=== PATIENT | male | born 1970 | race Caucasian/White ===

== ENCOUNTER 2023-02-12 19:44 | Observation (INO) | payer MEDICAID, SELFPAY ==
[2023-02-12] VITALS (9 sets, daily range): BP systolic 173–207; BP diastolic 87–116; PULSE 82–107; RESP 12–18; TEMP 36.9–37.6; O2SAT 88–97; BMI 39.0; BMI 38.5
--- NOTE | 2023-02-12 19:52 | EKG12_ITS ---
Test Reason : AMS Blood Pressure : / mmHG Vent. Rate : 100 BPM Atrial Rate : 100 BPM P-R Int : 148 ms QRS Dur : 086 ms QT Int : 338 ms P-R-T Axes : 050 030 -09 degrees QTc Int : 436 ms Normal sinus rhythm Possible Left atrial enlargement ST & T wave abnormality, consider lateral ischemia Abnormal ECG Confirmed by YARED RAMIREZ, CARLEEN ([id number]), supervising film or videotape editor DRU ROACH ([id number]) on 02/13/2023 10:45:14 AM Referred By: Confirmed By:CARLEEN VAIL MD
--- NOTE | 2023-02-12 19:52 | CT_ITS ---
INDICATION: GCS 3 EXAMINATION: CT BRAIN - CT Head or Brain W/O Contrast Injection TECHNIQUE: Multiple axial images were obtained of the head without intravenous contrast. A radiation dose optimization technique was used for this scan. IV Contrast dosage and agent: None. RADIATION DOSAGE (If Supplied By Facility): CTDIvol = ( 44.99 ) mGy, DLP = ( 863.60 ) mGycm COMPARISON: None FINDINGS: BRAIN PARENCHYMA: No intra- or extra-axial hemorrhage. No evidence of acute infarct. No intracranial mass or mass effect. There is preservation of the bee/white matter interface. Posterior fossa structures are unremarkable. CSF SPACES: Appropriate for age. No hydrocephalus. Basal cisterns are patent. CALVARIUM, SKULL BASE, PARANASAL SINUSES AND MASTOID AIR CELLS: Clear. No discrete lytic or blastic abnormalities. ORBITS: Both globes, extraocular muscles, optic nerves and retrobulbar fat appear unremarkable. ASPECTS Score for Acute Strokes: 10 CT/Brain/Head without Contrast IMPRESSION: Negative Brain CT without contrast. Electronically Signed: Jose Hummel MD at 20:44 EDT ,
--- NOTE | 2023-02-12 20:05 | EX.ED.CRITCA ---
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 They entered the house. They found him unresponsive. There are is no documentation of medication on prior records. He was seen once for cellulitis and abscess by Dr. Elio Dasilva. There are no other records available for review. Prior similar symptoms: No Recent Illness/Hospitalization: No PFSH PFSH Medical History (Updated 02/12/23 @ 21:[address] Vin Ivy MD) Marijuana abuse Medical History unable to obtain unable to obtain Home Medications clindamycin HCl 300 mg capsule (Cleocin HCl) 300 mg PO Q6H ##40 01/31/14 [Rx Last Taken Unknown] Allergy/AdvReac Type Severity Reaction Status Date / Time No Known Allergies Allergy Verified 01/30/14 23:48 Family History unable to obtain unable to obtain Surgical History unable to obtain unable to obtain Social History (Updated 02/12/23 @ 20:[address] Vin Ivy MD) household members: none Smoking Status: Unknown if ever smoked ROS ROS ED Review of Systems ROS Unobtainable: due to mental status EXAM Physical Exam Const Vital Signs: 02/12/23 19:48 02/12/23 19:52 02/12/23 20:08 Temperature 99.6 F H 98.9 F Temperature Source Temporal Core Pulse Rate 107 H 107 H Respiratory Rate 18 15 Blood Pressure 173/108 H 207/110 H 203/116 H Blood Pressure Mean 129 142 145 Pulse Ox 95 93 Oxygen Delivery Method Room Air Room Air Oxygen Flow Rate (L/min) 02/12/23 20:31 02/12/23 20:40 02/12/23 20:41 Temperature 99.6 F H 99.6 F H Temperature Source Core Core Pulse Rate 98 84 Respiratory Rate 14 12 Blood Pressure 188/96 H 181/87 H Blood Pressure Mean 126 118 Pulse Ox 92 88 97 Oxygen Delivery Method Room Air Room Air Nasal Cannula Oxygen Flow Rate (L/min) 2 02/12/ 21:28 Temperature 99.1 F Temperature Source Core Pulse Rate 82 Respiratory Rate 18 Blood Pressure 173/94 H Blood Pressure Mean 120 Pulse Ox 96 Oxygen Delivery Method Nasal Cannula Oxygen Flow Rate (L/min) 2 Positive well nourished, well developed, obese and unkempt Constitutional Narrative: Patient staring. Pupils are pinpoint. Patient does not respond to noxious stimuli. Pressure applied to the right and left supraorbital nerves with no response. Apparently patient flushed when Zheng was placed by nursing staff. There was no verbal response and no appropriate response in his extremities. He did move his extremities according to nurses. General Appearance ED: unkempt, well developed and pallor Nutritional Appearance: obese HEENT HEENT Narrative: Ears normal. No hemotympanum. No CSF otorrhea or rhinorrhea. normocephalic and atraumatic; Negative for cyanosis of lips/distal nose or tenderness Eyes Eyes Narrative: Patient is looking straight ahead. Nurse stated he does not have a corneal reflex. This is probably due to the fact that he has contacts in. He does respond to touching of his lashes. General Eye ED: Negative for pale conjunctiva or scleral icterus Neck Neck Narrative: Neck is supple. Trachea is midline. There is no inspiratory stridor. There is no the. Resp Resp Narrative: There is no respiratory distress. Patient has adventitial breath sounds noted. There is no rales, rhonchi or wheezing noted. Cardio regular rhythm, S1 normal heart sound, S2 normal heart sound and no murmurs Rate: tachycardic GI non-tender, non-distended and no masses Auscultation: hypoactive bowel sounds Palpation: soft Narrative: Penis without lesion or discharge. No sign swelling or lesions noted. Back/Spine Back/Spine Narrative: No evidence of trauma. Neuro No oriented x3 Neuro Narrative: GCS is 9. Sensorium / Orientation: Negative for alert Gait (Neuro): Negative for normal gait Psych Psych Narrative: Unable to determine Appearance: unkempt Skin Skin Narrative: Patient is pale diaphoretic and there is evidence of acrocyanosis. General Skin Exam: pallor; Negative for jaundice MDM MDM MDM Narrative Medical decision making narrative: With elevated blood pressure pinpoint pupils need to rule out intracranial bleed. The fact that he was found with THC Gummies need to rule out by exclusion adverse reaction to drug overdose. We will obtain CAT scan of the head rule out intracranial bleed. Because of the abnormal breath sounds obtain chest x-ray to rule out pneumonia. Zheng was placed obtain urine for tox screen as well as UA. Competence of metabolic panel was obtained to assess for evidence of metabolic causes of his altered mental status. Since patient is not drooling is not hypoxic does not have labored breathing will observe. There is no indication at this point for intubation to protect his airway. Lab Data Attestation: I reviewed the patient's lab results. Lab results narrative: CV see is. Coags are normal. Comprehensive metabolic panel is marked for an elevated creatinine of 1.61 with a GFR of 48. Glucose is elevated 121 with a normal CO2 anion gap. Lactate normal. Urinalysis is unremarkable. Tox screen is positive for cannabis only. Is Labs: Laboratory Results - last 24 hr 02/12/23 02/12/23 20:00 20:05 WBC 8.5 RBC 5.64 Hgb 16.4 Hct 48.4 MCV 85.8 MCH 29.1 MCHC 33.9 RDW Std Deviation 40.8 RDW Coeff of Melania 13.2 Plt Count 265 MPV 11.0 Immature Gran % (Auto) 0.700 Neut % (Auto) 67.9 Lymph % (Auto) 18.8 L [place] % (Auto) 11.3 H Eos % (Auto) 0.7 Baso % (Auto) 0.6 Absolute Neuts (auto) 5.8 Absolute Lymphs (auto) 1.59 Nucleated RBC % 0 PT 13.8 INR 1.1 APTT 33.0 Sodium 138 Potassium 3.6 Chloride 106 Carbon Dioxide 25.0 Anion Gap 7 BUN 16 Creatinine 1.61 H Estim Creat Clear Calc 56.05 Est GFR (MDRD) Af Amer 58 L Est GFR (MDRD) Non-Af 48 L BUN/Creatinine Ratio 9.9 L Glucose 121 H Lactic Acid 1.4 Calcium 9.1 Total Bilirubin 0.70 Direct Bilirubin 0.18 AST 17 ALT 44 Alkaline Phosphatase 93 Total Protein 7.8 Albumin 4.0 Globulin 3.8 Urine Color Yellow Urine Clarity Clear Urine pH 5.0 Ur Specific [place] 1.025 Urine Protein 30 H Urine Glucose (UA) Normal Urine Ketones 5 H Urine Occult Blood 10 H Urine Nitrite Negative Urine Bilirubin 1 H Urine Urobilinogen 1 H Ur Leukocyte Esterase 25 H Urine RBC 0 SEEN Urine WBC 0-5 SEEN Ur Squamous Epith Cells 0 SEEN Urine Bacteria 0 SEEN Hyaline Casts 0-5 SEEN Urine Mucus 0 SEEN Urine Opiates Screen NEGATIVE Urine Methadone Screen NEGATIVE Ur Barbiturates Screen NEGATIVE Ur Phencyclidine Scrn NEGATIVE Ur Amphetamines Screen NEGATIVE MDMA (Ecstasy) Screen NEGATIVE U Benzodiazepines Scrn NEGATIVE Urine Cocaine Screen NEGATIVE U Cannabinoids Screen POSITIVE H Ur Drug Screen Comment Ethyl Alcohol 4.0 POC Glucose 128 H ABG Data ABG results: ABG 02/12/23 21:30 Specimen Type ART Sample Site R Radial pH 7.38 Bicarbonate Actual 25.7 Total CO2 27 Base Excess 1 O2 Saturation 97 ABG pCO2 44.0 ABG pO2 91 Baljit Test N/A O2 Delivery Device Cannula Liter Flow 2.0 Radiography Diagnostic Testing: Clinical Impression(s) from Imaging Studies Brain CT 02/12/23 19:52 IMPRESSION: Negative Brain CT without contrast. Electronically Signed: Jose Hummel MD at 20:44 EDT Reading Location ID and State: [address] [place] [address] Tel , Service support , Chest X-Ray 02/12/23 20:20 IMPRESSION: No radiographic evidence of acute cardiopulmonary disease. Electronically Signed: Jose Hummel MD at 20:44 EDT , EKG Initial EKG: Attestation: I personally reviewed and interpreted this EKG as follows: Interpretation: Sinus Rhythm (Rate is 100. MN interval is under 48 ms. Cures duration 86 ms. QT durations 138 ms. [place] is normal. There is ST-T wave changes consistent with LVH.) Critical Care Time Critical Care Time: Yes Critical care time (excluding procedures): 30-74 minutes (21), Including time spent: (History, physical, documentation, discussion with law enforcement) and Discussing w/Consultants Discharge Plan Dx/Rx/DC Orders Clinical Impression: Unresponsive state, Sinus tachycardia, Acute renal insufficiency, Cannabis overdose, Hypertension Disposition Disposition: Acute Care Hospital [facility]
[2023-02-12 20:08] LABS: Bacteria 0 SEEN /hpf (None Seen); Mucous, Urine 0 SEEN /hpf (<or=2+); Red Blood Cells-Urine 0 SEEN /hpf (0-5); Squamous Epithelial Cells - UA 0 SEEN /hpf (0-5)
[2023-02-12 20:11] LABS: Color, Urine Yellow (Yellow); Glucose, Dipstick Normal (Normal); Ketone-Dipstick 5 mg/dl (Negative); Leukocyte Esterase-Dipstick 25 /ul (Negative); Nitrite-Dipstick Negative (Negative); Occult Blood-Urine 10 /ul (Negative); Protein-Dipstick 30 mg/dl (Negative); Specific Gravity, Urine 1.025 (1.002-1.030); Urine Bilirubin Dipstick 1 mg/dL (Negative); Urine Clarity Clear (Clear); Urine Urobilinogen 1 mg/dl (Normal)
[2023-02-12 20:19] LABS: Absolute Lymphocyte Count 1.59 X10^3/uL (0.83-4.51); Absolute Neutrophil Count 5.8 X10^3/uL (2.0-7.7); Basophil# 0.05 X10^3/uL; Basophil% 0.6 % (0-1); Eosinophil# 0.06 X10^3/uL; Eosinophils% 0.7 % (0-5); Hematocrit 48.4 % (40-54); Hemoglobin 16.4 g/dL (13.0-16.5); Lymphocyte # 1.59 X10^3/ul (0.83-4.51); Lymphocyte % 18.8 % (19-41); Mean Corp Hgb Conc 33.9 g/dL (32-36); Mean Corpuscular Hgb 29.1 pg (27.0-32.0); Mean Corpuscular Volume 85.8 fL (80-94); Monocyte# 0.96 X10^3/uL; Monocyte% 11.3 % (0-10); NRBC Flagged by Analyzer 0 % (0-5); Neutrophil # 5.75 X10^3/uL (2.7-7.7); Neutrophil % 67.9 % (47-70); Platelet Count 265 K/mm3 (150-450); RBC Distribution Width CV 13.2 % (11.6-14.6); RBC Distribution Width SD 40.8 fl (35.1-43.9); Red Blood Count 5.64 M/mm3 (4.6-6.2); White Blood Count 8.5 K/mm3 (4.4-11.0)
[2023-02-12 20:20] LABS: Hyaline Cast 0-5 SEEN /lpf (0-5); White Blood Cells 0-5 SEEN /hpf (0-5)
--- NOTE | 2023-02-12 20:20 | RAD_ITS ---
INDICATION: Adventitial breath sounds EXAMINATION/TECHNIQUE: X-RAY - XR Chest 1 View COMPARISON: None FINDINGS: LUNGS: No consolidation, edema or effusion. No pneumothorax. MEDIASTINUM AND CARDIOVASCULAR STRUCTURES: Cardiac silhouette not enlarged. Central airways and mediastinal contour are unremarkable. RAD/Chest 1 View (Portable) IMPRESSION: No radiographic evidence of acute cardiopulmonary disease. Electronically Signed: Jose Hummel MD at 20:44 EDT ,
[2023-02-12 20:28] LABS: International Normalized Ratio 1.1; Prothrombin Time (Protime)PT. 13.8 SECONDS (11.7-14.9)
[2023-02-12 20:29] LABS: Bedside Glucose 128 mg/dL (74-106)
[2023-02-12 20:31] LABS: Amphetamine Urine VISTA NEGATIVE (<1000 ng/mL); Barbiturate Urine VISTA NEGATIVE (< 200 ng/mL); Benzodiazepine Urine VISTA NEGATIVE (< 200 ng/mL); Cocaine Urine VISTA NEGATIVE (< 300 ng/mL); Ecstacy Urine VISTA NEGATIVE (< 500 ng/mL); Methadone Urine VISTA NEGATIVE (< 300 ng/mL); PCP Urine VISTA NEGATIVE (< 25 ng/mL); THC Urine VISTA POSITIVE (< 50 ng/mL); Vista UDS pH Range 5
[2023-02-12] MEDS: Labetalol (Prefilled) 20 MG/4 ML IV (20:37)
[2023-02-12 20:42] LABS: AST(SGOT) 17 U/L (15-37); Alanine Aminotransfer ALT/SGPT 44 U/L (16-61); Alkaline Phosphatase 93 U/L (45-117); Anion Gap 7 (5-15); BUN 16 mg/dL (7-18); BUN/Creat Ratio 9.9 RATIO (10-20); Bilirubin, Direct 0.18 mg/dL (0.00-0.30); Calcium,Total 9.1 mg/dL (8.5-10.1); Chloride 106 mmol/L (98-107); Creatinine, Serum 1.61 mg/dL (0.70-1.30); EST Glomerular Filtration Rate 48 mL/min (>60); Est Glom Filt Rate - Afr Amer 58 mL/min (>60); Estimated Creatinine Clearance 56.05 ml/min; Globulin 3.8 g/dL (2.2-4.2); Glucose 121 mg/dL (74-106); Potassium 3.6 mmol/L (3.5-5.1); Protein, Total 7.8 g/dL (6.4-8.2); Sodium Level 138 mmol/L (136-145)
[2023-02-12 20:46] LABS: Lactic Acid 1.4 mmol/L (0.4-1.9)
[2023-02-12] MEDS: 0.9% Normal Saline 1,000 ML 999 ML IV (21:00)
[2023-02-12 21:33] LABS: Base Excess 1 mmol/L (-2 to +2); Bicarbonate 25.7 mmol/L (22-26); Blood Gas Specimen Type ART; O2 Delivery Device Cannula; PO2 91 mmHG (75-100); SITE R Radial; SO2 97 % (95-99); Total Carbon Dioxide 27 mmol/L; pH 7.38 (7.35-7.45)
--- NOTE | 2023-02-12 22:05 | ED.RN ---
pt denied wanting RN to call anyone
--- NOTE | 2023-02-12 22:09 | PCM.HP.STD ---
HPI - General General Date of Admission: 02/12/23 Date of Service: 02/12/23 Chief Complaint: Unresponsive. HPI Narrative The patient is a 52 y/o M w/ PMHx: Obesity, Heavy Chronic cannabis usage who presents to the [facility] ED on 02/12/23 with history of chronic cannabis gummy usage on a daily basis however he recently did get a new batch of Gummies and took his normal amount unfortunately prompting significant encephalopathy with last known well unclear timeline fortunately checked on by his neighbor who had not seen him recently prompting police/EMS call secondary to finding him unresponsive in his home. In the ED once he became more alert and was able to interact he did report that these were definitely different and significantly more strong and he had not realized it. He did state that he has not ate or drank and given the confusion but could not tell me last time of intake or last known well time. He denies any specific complaints or pain at this time. Work-up in the ED included T99.6 With most recent repeat T99.1 Initially temporal and most recent core, heart rate initially 107 with most recent repeat 82, BP initially 173/108 with most recent repeat 173/94, respiratory rate 18, initially 95% on room air but desaturated to 88% on room air with improvement to 96% on 2 L nasal cannula, CBC with WC 8.5, hemoglobin 16.4, platelet 265 without marked shift, unremarkable coags, ABG not marked appearing obtained on 2 L nasal cannula, CMP with BUN/creatinine 16/1.61, glucose 121, lactic acid 1.4, hepatic profile unremarkable, urinalysis with elevated specific gravity 1.025, protein 30, ketone 5, occult blood 10, negative nitrite, leukocyte Estrace 25 with no urine RBCs or WBCs and no urine bacteria, urine tox screen with cannabis noted, ethyl alcohol level pending upon requested evaluation of patient, chest x-ray with no acute cardiopulmonary findings, CT of the brain with no acute intracranial findings, EKG with sinus tachycardia with nonspecific changes. In the ED patient administered 1L normal saline as well as labetalol 20 mg IV x1. [facility] Medical History (Updated 02/12/23 @ 22:[address] Ching White MD) Hypotestosteronemia in male Marijuana abuse Obesity Medical History unable to obtain Home Medications clindamycin HCl 300 mg capsule (Cleocin HCl) 300 mg PO Q6H ##40 01/31/14 [Rx Last Taken Unknown] Allergy/AdvReac Type Severity Reaction Status Date / Time No Known Allergies Allergy Verified 01/30/14 23:48 Family History (Updated 02/12/23 @ 22:[address] Ching White MD) Mother Hypertension CAD (coronary artery disease) Heart disease Myocardial infarction Father No problems noted. Family History unable to obtain Surgical History (Updated 02/12/23 @ 22:[address] Ching White MD) History of vasectomy S/P foot surgery, right Surgical History unable to obtain Social History (Updated 02/12/23 @ 22:[address] Ching White MD) household members: none Smoking Status: Never smoker alcohol intake: never substance use type: marijuana ROS Review of Systems ROS Unobtainable: due to encephalopathy Vital Signs Vital Signs Vital Signs: 02/12/23 19:48 02/12/23 19:52 02/12/23 20:08 Temperature 99.6 F H 98.9 F Temperature Source Temporal Core Pulse Rate 107 H 107 H Respiratory Rate 18 15 Blood Pressure 173/108 H 207/110 H 203/116 H Blood Pressure Mean 129 142 145 Pulse Ox 95 93 Oxygen Delivery Method Room Air Room Air Oxygen Flow Rate (L/min) 02/12/23 20:31 02/12/23 20:40 02/12/23 20:41 Temperature 99.6 F H 99.6 F H Temperature Source Core Core Pulse Rate 98 84 Respiratory Rate 14 12 Blood Pressure 188/96 H 181/87 H Blood Pressure Mean 126 118 Pulse Ox 92 88 97 Oxygen Delivery Method Room Air Room Air Nasal Cannula Oxygen Flow Rate (L/min) 2 02/12/23 21:28 02/12/23 21:55 Temperature 99.1 F 99 F Temperature Source Core Core Pulse Rate 82 82 Respiratory Rate 18 18 Blood Pressure 173/94 H 182/96 H Blood Pressure Mean 120 124 Pulse Ox 96 96 Oxygen Delivery Method Nasal Cannula Nasal Cannula Oxygen Flow Rate (L/min) 2 2 Weight Weight: 272 lb 4.334 oz Body Mass Index (BMI) 39.0 Physical Exam Narrative Physical Examination: General: Awake, initially not alert, not answering any questions however improved through his time in the ED and following IV fluids, now able to give historical information and appearing more appropriate, following some commands but very slow and lethargic, laying in the ED bed, extremely flat affect. Skin: Still mildly flushed color, normal turgor, no icterus, no cyanosis. HEENT: AT/NC, EOMI, PERRLA, dry MM, no carotid bruits or JVD noted. Lungs: CTA bilaterally, moderate effort, mild decrease BL bases, no rales, ronchi or wheezing. Heart: Improved, regular rate and rhythm; no gallop, rub audible. Abdomen: Soft, obese, NTTP, ND, hyperactive BS, no HSM. Extremities: No cyanosis, clubbing, or edema. Neurological: Awake, initially not alert, not answering any questions however improved through his time in the ED and following IV fluids, now able to give historical information and appearing more appropriate, following some commands but very slow and lethargic, laying in the ED bed, extremely flat affect, cognitive function significantly improved from initial ED arrival however still not baseline intact; pupils equally reactive to light and accommodation, cranial nerves grossly normal, moving all 4 extremities, no focal deficits, strength remains moderately to severely globally decreased but this is more so secondary to his lethargy and extremely slow responsiveness. Psychiatric: Affect appears extremely flat, no acute evidence of depressive or anxiety feelings. Results Lab / Micro Data 02/12/23 20:00 02/12/23 20:00 Labs: Laboratory Results - last 24 hr 02/12/23 20:00: WBC 8.5, RBC 5.64, Hgb 16.4, Hct 48.4, MCV 85.8, MCH 29.1, MCHC 33.9, RDW Std Deviation 40.8, RDW Coeff of Melania 13.2, Plt Count 265, MPV 11.0, Immature Gran % (Auto) 0.700, Neut % (Auto) 67.9, Lymph % (Auto) 18.8 L, [place] % (Auto) 11.3 H, Eos % (Auto) 0.7, Baso % (Auto) 0.6, Absolute Neuts (auto) 5.8, Absolute Lymphs (auto) 1.59, Nucleated RBC % 0, PT 13.8, INR 1.1, APTT 33.0, Sodium 138, Potassium 3.6, Chloride 106, Carbon Dioxide 25.0, Anion Gap 7, BUN 16, Creatinine 1.61 H, Estim Creat Clear Calc 56.05, Est GFR (MDRD) Af Amer 58 L, Est GFR (MDRD) Non-Af 48 L, BUN/Creatinine Ratio 9.9 L, Glucose 121 H, Lactic Acid 1.4, Calcium 9.1, Total Bilirubin 0.70, Direct Bilirubin 0.18, AST 17, ALT 44, Alkaline Phosphatase 93, Total Protein 7.8, Albumin 4.0, Globulin 3.8, Urine Color Yellow, Urine Clarity Clear, Urine pH 5.0, Ur Specific [place] 1.025, Urine Protein 30 H, Urine Glucose (UA) Normal, Urine Ketones 5 H, Urine Occult Blood 10 H, Urine Nitrite Negative, Urine Bilirubin 1 H, Urine Urobilinogen 1 H, Ur Leukocyte Esterase 25 H, Urine RBC 0 SEEN, Urine WBC 0-5 SEEN, Ur Squamous Epith Cells 0 SEEN, Urine Bacteria 0 SEEN, Hyaline Casts 0-5 SEEN, Urine Mucus 0 SEEN, Urine Opiates Screen NEGATIVE, Urine Methadone Screen NEGATIVE, Ur Barbiturates Screen NEGATIVE, Ur Phencyclidine Scrn NEGATIVE, Ur Amphetamines Screen NEGATIVE, MDMA (Ecstasy) Screen NEGATIVE, U Benzodiazepines Scrn NEGATIVE, Urine Cocaine Screen NEGATIVE, U Cannabinoids Screen POSITIVE H, Ur Drug Screen Comment , Ethyl Alcohol 4.0 02/12/23 20:05: POC Glucose 128 H ABG Data ABG results: ABG 02/12/23 21:30 Specimen Type ART Sample Site R Radial pH 7.38 Bicarbonate Actual 25.7 Total CO2 27 Base Excess 1 O2 Saturation 97 ABG pCO2 44.0 ABG pO2 91 Baljit Test N/A O2 Delivery Device Cannula Liter Flow 2.[address] 02/12/23 19:52 IMPRESSION: Negative Brain CT without contrast. Electronically Signed: Jose Hummel MD at 20:44 EDT , Chest X-Ray 02/12/23 20:20 IMPRESSION: No radiographic evidence of acute cardiopulmonary disease. Electronically Signed: Jose Hummel MD at 20:44 EDT , Assessment & Plan Assessment/Plan (1) Cannabis overdose: PLAN: Plan The patient is a 52 y/o M w/ PMHx: Obesity, Heavy Chronic cannabis usage who presents to the [facility] ED on 02/12/23 with history of chronic cannabis gummy usage on a daily basis however he recently did get a new batch of Gummies and took his normal amount unfortunately prompting significant encephalopathy with last known well unclear timeline fortunately checked on by his neighbor who had not seen him recently prompting police/EMS call secondary to finding him unresponsive in his home. #1. Acute encephalopathy, unresponsive status secondary to accidental cannabis gummy overdose: We will admit to medical surgical floor, will continue aggressive hydration, patient is already starting to improve and once more appropriate will allow oral intake, strongly educated patient on safety concepts of taking cannabis Gummies especially not knowing their specific strength, will have as needed nausea medications, maintain on fall and aspiration Precautions, expect discharge in a.m. most likely. #2. Elevated BP without hypertensive diagnosis, suspected hypertension: Significantly elevated BP upon ED presentation, no noted history of prior and not on any hypertensive medications, potentially could be related with his acute accidental overdose but we will continue to monitor and add oral regimen if appropriate, as needed IV hydralazine in interim. #3. Suspected Acute kidney injury: Secondary to substance abuse coupled with dehydration. Admission BUN/Cr 16/1.6, prior baseline creatinine unknown. Will hydrate, hold nephrotoxic medications and repeat chemistry in AM. If no improvement would plan FeNa assessment. #4. Mild hypoxia suspected secondary to MYRON undiagnosed: Patient while sleeping and laying with onset of mild hypoxia with oxygenation 88%, improved with 2 L nasal cannula, recommended strongly outpatient evaluation for underlying sleep apnea. #5. Obesity: Weight loss and lifestyle changes encouraged. #6. Hypotestosteronemia: Clarifying testosterone regimen, will add if appropriate; however, given likely discharge in a.m. likely will not be necessary. #7. DVT prophylaxis: Low risk. #8. CODE STATUS: Full code. Admission Evaluation Time spent evaluating chart, patient history, patient evaluation, care planning and discussion with specialists: 55 minutes. Charges/Coding Visit Charges Inpatient E&M: 64359 Init Hosp L2
[2023-02-13 01:13] VITALS: BP 174/99; PULSE 88
[2023-02-13] MEDS: 0.9% Normal Saline 1,000 ML 999 ML IV (01:13)
[2023-02-13] MEDS: hydrALAZINE 20 MG/ML Vial 10 MG IV ×2 (01:13→07:53)
[2023-02-13] MEDS: 0.9% Saline Lock 10 ML Syringe IV ×2 (01:13→07:53)
[2023-02-13 02:07] VITALS: BP 157/89; PULSE 71; RESP 16; TEMP 36.6; O2SAT 96
[2023-02-13] MEDS: 0.9% Normal Saline 1,000 ML 150 ML IV ×2 (02:16→07:55)
[2023-02-13 06:00] VITALS: BMI 38.5
[2023-02-13 07:14] LABS: Absolute Lymphocyte Count 1.58 X10^3/uL (0.83-4.51); Basophil# 0.03 X10^3/uL; Basophil% 0.4 % (0-1); Eosinophil# 0.06 X10^3/uL; Eosinophils% 0.8 % (0-5); Hematocrit 44.8 % (40-54); Lymphocyte # 1.58 X10^3/ul (0.83-4.51); Lymphocyte % 21.1 % (19-41); Mean Corp Hgb Conc 33.5 g/dL (32-36); Mean Corpuscular Hgb 28.9 pg (27.0-32.0); Mean Corpuscular Volume 86.3 fL (80-94); Mean Platelet Vol. 11.6 fl (6.2-12.0); Monocyte# 0.81 X10^3/uL; Monocyte% 10.8 % (0-10); NRBC Flagged by Analyzer 0 % (0-5); Neutrophil # 4.99 X10^3/uL (2.7-7.7); Neutrophil % 66.5 % (47-70); Platelet Count 237 K/mm3 (150-450); RBC Distribution Width CV 13.3 % (11.6-14.6); RBC Distribution Width SD 41.3 fl (35.1-43.9); Red Blood Count 5.19 M/mm3 (4.6-6.2); White Blood Count 7.5 K/mm3 (4.4-11.0)
[2023-02-13 07:22] VITALS: O2SAT 96
[2023-02-13 07:40] LABS: ALB/GLOB Ratio 1.1 RATIO (0.9-2.4); AST(SGOT) 15 U/L (15-37); Alanine Aminotransfer ALT/SGPT 36 U/L (16-61); Albumin, Serum 3.3 g/dL (3.2-5.0); Alkaline Phosphatase 77 U/L (45-117); Anion Gap 7 (5-15); BUN 12 mg/dL (7-18); BUN/Creat Ratio 12.5 RATIO (10-20); Chloride 111 mmol/L (98-107); Creatinine, Serum 0.96 mg/dL (0.70-1.30); EST Glomerular Filtration Rate 88 mL/min (>60); Est Glom Filt Rate - Afr Amer 106 mL/min (>60); Globulin 3.1 g/dL (2.2-4.2); Glucose 111 mg/dL (74-106); Potassium 3.5 mmol/L (3.5-5.1); Protein, Total 6.4 g/dL (6.4-8.2); Sodium Level 140 mmol/L (136-145)
[2023-02-13 07:42] VITALS: BP 162/107; PULSE 70; RESP 18; TEMP 36.7; O2SAT 97
[2023-02-13 07:53] VITALS: PULSE 70
--- NOTE | 2023-02-13 08:47 | PN.HOSP_ITS ---
Reason for Visit Reason for Visit: Diagnoses Poisoning by cannabis, accidental (unintentional), initial encounter (02/12/23) Subjective Subjective Feels well. No issues overnight. Objective Data Objective Data Vital Signs: Vital Signs Temp Pulse Resp BP Pulse Ox O2 Del Method O2 Flow Rate 36.7 C 70 18 162/107 H 97 Room Air 2 02/13/23 07:42 02/13/23 07:53 02/13/23 07:42 02/13/23 07:42 02/13/23 07:42 02/13/23 07:42 02/12/23 21:55 Oxygen Flow Rate (L/min) 2 Oxygen Delivery Method Room Air Weight: 121.608 kg Body Mass Index (BMI) 38.5 Intake & Output: Intake and Output for Last 24 Hours 02/11/23 02/12/23 02/13/23 23:59 23:59 23:59 Intake Total 1000 / 1000 1847.5 / 1847.5 Output Total 950 / 950 Balance 1000 / 500 897.5 / 897.5 Lab / Micro Data 02/13/23 06:03 02/13/23 06:03 Labs: Laboratory Results - last 24 hr 02/12/23 20:00: WBC 8.5, RBC 5.64, Hgb 16.4, Hct 48.4, MCV 85.8, MCH 29.1, MCHC 33.9, RDW Std Deviation 40.8, RDW Coeff of Melania 13.2, Plt Count 265, MPV 11.0, Immature Gran % (Auto) 0.700, Neut % (Auto) 67.9, Lymph % (Auto) 18.8 L, [place] % (Auto) 11.3 H, Eos % (Auto) 0.7, Baso % (Auto) 0.6, Absolute Neuts (auto) 5.8, Absolute Lymphs (auto) 1.59, Nucleated RBC % 0, PT 13.8, INR 1.1, APTT 33.0, Sodium 138, Potassium 3.6, Chloride 106, Carbon Dioxide 25.0, Anion Gap 7, BUN 16, Creatinine 1.61 H, Estim Creat Clear Calc 56.05, Est GFR (MDRD) Af Amer 58 L , Est GFR (MDRD) Non-Af 48 L, BUN/Creatinine Ratio 9.9 L, Glucose 121 H, Lactic Acid 1.4, Calcium 9.1, Total Bilirubin 0.70, Direct Bilirubin 0.18, AST 17, ALT 44, Alkaline Phosphatase 93, Total Protein 7.8, Albumin 4.0, Globulin 3.8, Urine Color Yellow, Urine Clarity Clear, Urine pH 5.0, Ur Specific [place] 1.025, Urine Protein 30 H, Urine Glucose (UA) Normal, Urine Ketones 5 H, Urine Occult Blood 10 H, Urine Nitrite Negative, Urine Bilirubin 1 H, Urine Urobilinogen 1 H, Ur Leukocyte Esterase 25 H, Urine RBC 0 SEEN, Urine WBC 0-5 SEEN, Ur Squamous Epith Cells 0 SEEN, Urine Bacteria 0 SEEN, Hyaline Casts 0-5 SEEN, Urine Mucus 0 SEEN, Urine Opiates Screen NEGATIVE, Urine Methadone Screen NEGATIVE, Ur Barbiturates Screen NEGATIVE, Ur Phencyclidine Scrn NEGATIVE, Ur Amphetamines Screen NEGATIVE, MDMA (Ecstasy) Screen NEGATIVE, U Benzodiazepines Scrn NEG ATIVE, Urine Cocaine Screen NEGATIVE, U Cannabinoids Screen POSITIVE H, Ur Drug Screen Comment , Ethyl Alcohol 4.0 02/12/23 20:05: POC Glucose 128 H 02/13/23 06:03: WBC 7.5, RBC 5.19, Hgb 15.0, Hct 44.8, MCV 86.3, MCH 28.9, MCHC 33.5, RDW Std Deviation 41.3, RDW Coeff of Melania 13.3, Plt Count 237, MPV 11.6, Immature Gran % (Auto) 0.400, Neut % (Auto) 66.5, Lymph % (Auto) 21.1, [place] % (Auto) 10.8 H, Eos % (Auto) 0.8, Baso % (Auto) 0.4, Absolute Neuts (auto) 5.0, Absolute Lymphs (auto) 1.58, Nucleated RBC % 0, Sodium 140, Potassium 3.5, Chloride 111 H, Carbon Dioxide 22.0, Anion Gap 7, BUN 12, Creatinine 0.96, Estim Creat Clear Calc 94.00, Est GFR (MDRD) Af Amer 106, Est GFR (MDRD) Non-Af 88, BUN/Creatinine Ratio 12.5, Glucose 111 H, Calcium 8.0 L, Total Bilirubin 0.60, AST 15, ALT 36, Alkaline Phosphatase 77, Total Protein 6.4, Albumin 3.3, Globulin 3.1, Albumin/Globulin Ratio 1.1 ABG Data ABG results: ABG 02/12/23 21:30 Specimen Type ART Sample Site R Radial pH 7.38 Bicarbonate Actual 25.7 Total CO2 27 Base Excess 1 O2 Saturation 97 ABG pCO2 44.0 ABG pO2 91 Baljit Test N/A O2 Delivery Device Cannula Liter Flow 2.0 Radiography Diagnostic Testing: Radiology Impression Brain CT 02/12/23 19:52 IMPRESSION: Negative Brain CT without contrast. Electronically Signed: Jose Hummel MD at 20:44 EDT Reading Location ID and State: [facility] / [place] Tel , Service support , Chest X-Ray 02/12/23 20:20 IMPRESSION: No radiographic evidence of acute cardiopulmonary disease. Electronically Signed: Jose Hummel MD at 20:44 EDT , Assessment & Plan Assessment/Plan (1) Cannabis overdose: QUALIFIERS: Encounter type: initial encounter Injury intent: accidental or unintentional Qualified Code(s): T40.711A - Poisoning by cannabis, accidental (unintentional), initial encounter PLAN: Severe intoxication due to allegedly taking more potent edibles. Pt states that the gummies come from [place] and were of the same potency that he had had before. Denies any other substance use. Patient states that he takes injectable testosterone for low testosterone. I did tell the patient that with habitual use of marijuana that it can cause impotence as well as gynecomastia. Remind patient about the it being technically illegal to use marijuana without a medical card in the state [facility]. (2) Acute encephalopathy: PLAN: Resolved 2/2 THC intoxication (3) RASHEL (acute kidney injury): PLAN: Resolved with IVF Likely prerenal (4) Hypertensive urgency: PLAN: improved, but still hypertensive start lisinopril as RASHEL resolved (5) Hypoxia: PLAN: resolved 2/2 THC intoxication +/- underlying MYRON PLAN: Plan Chronic conditions: * Obesity: Weight loss and lifestyle changes encouraged. * Hypotestosteronemia: Clarifying testosterone regimen, will add if appropriate; however, given likely discharge in a.m. likely will not be necessary. DVT prophylaxis: Low risk. CODE STATUS: Full code.
[2023-02-13 09:07] VITALS: BP 151/92
[2023-02-13] MEDS: Lisinopril 10 MG Tablet PO (09:22)
--- NOTE | 2023-02-13 09:49 | DCINST_ITS ---
Discharge Instructions Diet Discharge Diet: No restrictions Follow Up Care Test Results: Test results from this visit will be discussed in further detail at your follow- up appointment, if applicable. Discharge Plan Admission Admit Date/Time: 02/12/23 22:09 Primary Reason for Your Visit: THC intoxication Attending Provider: Noman Dill Primary Care Provider: Care Physician,No Primary Consulting Providers: Ching White Instructions Additional Instructions / Restrictions: Marijuana/cannabis/THC habitual use can cause impotence as well as gynecomastia. Cautious with excess use in the future given this hospitalization. Your blood pressure was extremely high upon arrival but has improved, however still been elevated. I have sent prescription for lisinopril, which is for high blood pressure, to your pharmacy. Please follow-up with your primary care provider, or get established a new primary care provider if you do not have 1, in the next couple weeks. Discharge Orders/Prescriptions Prescriptions: New lisinopril 10 mg Tablet 10 mg PO DAILY Qty: 30 0RF Continued testosterone cypionate [Depo-Testosterone] 200 mg/mL oil 200 mg IM Q14D Patient Comments: INJECT 1 ML INTRAMUSCULARLY EVERY TWO WEEKS Discontinued clindamycin HCl [Cleocin HCl] 300 MG capsule 300 mg PO Q6H Qty: 40 0RF Referrals / Follow Up: Care Physician,No Primary [Primary Care Provider] - NOT,DEFINED [Non-Staff] - Disposition Disposition (needs filled in before D/C Order can be placed): Home, Self Care
--- NOTE | 2023-02-13 09:52 | DS.PCM_ITS ---
Providers Date of Admission: 02/12/23 Primary Care Physician: No Primary Care Phys Reason For Visit: ACCIDENTAL OVERDOSE Diagnosis Discharge Diagnosis (1) Cannabis overdose: Status: Acute Code(s): T40.711A - Poisoning by cannabis, accidental (unintentional), initial encounter Qualifiers: Encounter type: initial encounter Injury intent: accidental or unintentional Qualified Code(s): T40.711A - Poisoning by cannabis, accidental (unintentional), initial encounter Plan: Severe intoxication due to allegedly taking more potent edibles. Pt states that the gummies come from [place] and were of the same potency that he had had before. Denies any other substance use. Patient states that he takes injectable testosterone for low testosterone. I did tell the patient that with habitual use of marijuana that it can cause impotence as well as gynecomastia. Remind patient about the it being technically illegal to use marijuana without a medical card in the state [facility] . (2) Acute encephalopathy: Status: Acute Code(s): G93.40 - Encephalopathy, unspecified Plan: Resolved 2/2 THC intoxication (3) RASHEL (acute kidney injury): Status: Acute Code(s): N17.9 - Acute kidney failure, unspecified Plan: Resolved with IVF Likely prerenal (4) Hypertensive urgency: Status: Acute Code(s): I16.0 - Hypertensive urgency Plan: improved, but still hypertensive start lisinopril as RASHEL resolved (5) Hypoxia: Status: Acute Code(s): R09.02 - Hypoxemia Plan: resolved 2/2 THC intoxication +/- underlying MYRON Plan Chronic conditions: * Obesity: Weight loss and lifestyle changes encouraged. * Hypotestosteronemia: Clarifying testosterone regimen, will add if appropriate; however, given likely discharge in a.m. likely will not be necessary. DVT prophylaxis: Low risk. CODE STATUS: Full code. Medications at Discharge Home Medications testosterone cypionate 200 mg/mL intramuscular oil (Depo-Testosterone) 200 mg IM Q14D testosterone 02/12/23 lisinopril 10 mg tablet 10 mg PO DAILY #30 tabs 02/13/23 Hospital Course Operations None Procedures None Summary of Care Provided Minutes Spent on Discharge: 26 Weight / BMI Weight Weight: 121.608 kg Body Mass Index (BMI) 38.5 ABG / Lab / Microbiology Data 02/13/23 06:03 06/29/23 06:03 Laboratory: Laboratory Results - last 24 hr 02/12/23 20:00: WBC 8.5, RBC 5.64, Hgb 16.4, Hct 48.4, MCV 85.8, MCH 29.1, MCHC 33.9, RDW Std Deviation 40.8, RDW Coeff of Melania 13.2, Plt Count 265, MPV 11.0, Immature Gran % (Auto) 0.700, Neut % (Auto) 67.9, Lymph % (Auto) 18.8 L, [place] % (Auto) 11.3 H, Eos % (Auto) 0.7, Baso % (Auto) 0.6, Absolute Neuts (auto) 5.8, Absolute Lymphs (auto) 1.59, Nucleated RBC % 0, PT 13.8, INR 1.1, APTT 33.0, Sodium 138, Potassium 3.6, Chloride 106, Carbon Dioxide 25.0, Anion Gap 7, BUN 16, Creatinine 1.61 H, Estim Creat Clear Calc 56.05, Est GFR (MDRD) Af Amer 58 L , Est GFR (MDRD) Non-Af 48 L, BUN/Creatinine Ratio 9.9 L, Glucose 121 H, Lactic Acid 1.4, Calcium 9.1, Total Bilirubin 0.70, Direct Bilirubin 0.18, AST 17, ALT 44, Alkaline Phosphatase 93, Total Protein 7.8, Albumin 4.0, Globulin 3.8, Urine Color Yellow, Urine Clarity Clear, Urine pH 5.0, Ur Specific [place] 1.025, Urine Protein 30 H, Urine Glucose (UA) Normal, Urine Ketones 5 H, Urine Occult Blood 10 H, Urine Nitrite Negative, Urine Bilirubin 1 H, Urine Urobilinogen 1 H, Ur Leukocyte Esterase 25 H, Urine RBC 0 SEEN, Urine WBC 0-5 SEEN, Ur Squamous Epith Cells 0 SEEN, Urine Bacteria 0 SEEN, Hyaline Casts 0-5 SEEN, Urine Mucus 0 SEEN, Urine Opiates Screen NEGATIVE, Urine Methadone Screen NEGATIVE, Ur Barbiturates Screen NEGATIVE, Ur Phencyclidine Scrn NEGATIVE, Ur Amphetamines Screen NEGATIVE, MDMA (Ecstasy) Screen NEGATIVE, U Benzodiazepines Scrn NEGATIVE, Urine Cocaine Screen NEGATIVE, U Cannabinoids Screen POSITIVE H, Ur Drug Screen Comment , Ethyl Alcohol 4.0 02/12/23 20:05: POC Glucose 128 H 02/13/23 06:03: WBC 7.5, RBC 5.19, Hgb 15.0, Hct 44.8, MCV 86.3, MCH 28.9, MCHC 33.5, RDW Std Deviation 41.3, RDW Coeff of Melania 13.3, Plt Count 237, MPV 11.6, Immature Gran % (Auto) 0.400, Neut % (Auto) 66.5, Lymph % (Auto) 21.1, [place] % (Auto) 10.8 H, Eos % (Auto) 0.8, Baso % (Auto) 0.4, Absolute Neuts (auto) 5.0, Absolute Lymphs (auto) 1.58, Nucleated RBC % 0, Sodium 140, Potassium 3.5, Chloride 111 H, Carbon Dioxide 22.0, Anion Gap 7, BUN 12, Creatinine 0.96, Estim Creat Clear Calc 94.00, Est GFR (MDRD) Af Amer 106, Est GFR (MDRD) Non-Af 88, BUN/Creatinine Ratio 12.5, Glucose 111 H, Calcium 8.0 L, Total Bilirubin 0.60, AST 15, ALT 36, Alkaline Phosphatase 77, Total Protein 6.4, Albumin 3.3, Globulin 3.1, Albumin/Globulin Ratio 1.1 ABG: ABG 02/12/23 21:30 Specimen Type ART Sample Site R Radial pH 7.38 Bicarbonate Actual 25.7 Total CO2 27 Base Excess 1 O2 Saturation 97 ABG pCO2 44.0 ABG pO2 91 Baljit Test N/A O2 Delivery Device Cannula Liter Flow 2.0 Radiography Diagnostic Testing: Radiology Impression Brain CT 02/12/23 19:52 IMPRESSION: Negative Brain CT without contrast. Electronically Signed: Jose Hummel MD at 20:44 EDT , Chest X-Ray 02/12/23 20:20 IMPRESSION: No radiographic evidence of acute cardiopulmonary disease. Electronically Signed: Jose Hummel MD at 20:44 EDT , D/C Instructions Discharge Diet: No restrictions Meaningful Use Info Meaningful Use Diagnoses (Choose all that apply): None applicable Discharge Plan Admission Admit Date/Time: 02/12/23 22:09 Primary Reason for Your Visit: THC intoxication Attending Provider: Noman Dill Primary Care Provider: Care Physician,No Primary Consulting Providers: Ching White Instructions Additional Instructions / Restrictions: Marijuana/cannabis/THC habitual use can cause impotence as well as gynecomastia. Cautious with excess use in the future given this hospitalization. Your blood pressure was extremely high upon arrival but has improved, however still been elevated. I have sent prescription for lisinopril, which is for high blood pressure, to your pharmacy. Please follow-up with your primary care provider, or get established a new primary care provider if you do not have 1, in the next couple weeks. Discharge Orders/Prescriptions Prescriptions: New lisinopril 10 mg Tablet 10 mg PO DAILY Qty: 30 0RF Continued testosterone cypionate [Depo-Testosterone] 200 mg/mL oil 200 mg IM Q14D Patient Comments: INJECT 1 ML INTRAMUSCULARLY EVERY TWO WEEKS Discontinued clindamycin HCl [Cleocin HCl] 300 MG capsule 300 mg PO Q6H Qty: 40 0RF Referrals / Follow Up: Care Physician,No Primary [Primary Care Provider] - NOT,DEFINED [Non-Staff] - Disposition Disposition (needs filled in before D/C Order can be placed): Home, Self Care Charges/Coding Visit Charges Inpatient E&M: 80699 Disch Hosp
--- NOTE | 2023-02-13 09:59 | CASEMGMT ---
Addendum entered by Conchita Sanz 02/13/23 11:20: Pt does not have transportation home, per nurse, pt agreeable to [facility]. TC to Ronnie, pt can be taken home at 12:30 today. Pt, nurse and racing secretary aware. Pt verbalizes understanding. Original Note: RN GELA notified pt does not have PCP. EDDIE REN into pt room, provided pt a local healthcare directory. Pt states he will set up PCP. Pt denies any homegoing needs.
--- NOTE | 2023-02-13 10:11 | CASEMGMT ---
Social Work SW met with pt to discuss drug use. Pt states he stopped drinking alcohol approximately one year ago and admitted to drug use that he was also able to stop on his own. Pt states the gummies are the only remaining substance that he uses. SW discussed with pt stopping use of gummies and finding other healthier options for coping. SW provided pt with resources from [facility]. Pt accepting of information. Pt denies any further needs. NARCISA Mathis
== END 2023-02-13 12:29 | disposition home or self-care (01) ==
LOC: ED 21:39 → MS3 22:06
PROVIDERS: Admitting Provider Family Medicine; Emergency Provider Emergency Medicine
DX: T40.711A Poisoning by cannabis, accidental (unintentional), initial encounter (principal); N17.9 Acute kidney failure, unspecified; R41.82 Altered mental status, unspecified; R09.02 Hypoxemia; R00.0 Tachycardia, unspecified; I10 Essential (primary) hypertension; G93.40 Encephalopathy, unspecified; I16.0 Hypertensive urgency; E66.9 Obesity, unspecified; Z68.39 Body mass index [BMI] 39.0-39.9, adult
CPT/HCPCS: 36415; 36600; 51702; 70450; 71045; 80048; 80053; 80076; 80307; 81001; 82077; 82803; 82962; 83605; 85025; 85610; 85730; 93005; 96361; 96374; 96375; 96376; 99285; J7030; A4216